=== PATIENT | male | born 1950 | race Caucasian/White ===

== ENCOUNTER 2023-11-22 05:57 | Day surgery (SDC) | payer MEDICARE, OTHER, SELFPAY ==
[2023-11-22] VITALS (14 sets, daily range): BP systolic 115–141; BP diastolic 64–89; BMI 37.7
[2023-11-22] MEDS: NSS 1000 IV ×2 (08:18)
--- NOTE | 2023-11-22 08:19 | ITS.CL.CATH ---
[employer] [facility] - Catheterization
Cardiac Catheterization
Procedure Report:
LEFT HEART CATHETERIZATION
Date of Procedure: November 22, 2023
Procedures performed:
1: Coronary angiography
2: Left ventriculography
Primary Care Physician: Dr. Sharron May
Primary Decatizer: Myself
INDICATION: The patient is a 73-year-old male with a past medical history significant for coronary artery disease status post LAD stenting in 2019 in the setting of aborted cardiac arrest who presents with atypical angina and an abnormal nuclear
perfusion stress test.
ACCESS: The patient was prepped and draped in usual sterile fashion. A 6 English sheath was placed in the right radial artery using the Seldinger over the wire technique.
HEMODYNAMIC FINDINGS (mmHg):
LV(s/d,EDP): 123/8, 18
Ao(s/d,m): 123/75, 98
ANGIOGRAPHIC FINDINGS:
Single-plane Left Ventriculography in [facility] Projection: Normal LV systolic function with no clear regional wall motion abnormalities. No significant mitral irritation. Visualized ejection fraction 60%.
Coronary Angiography:
Dominance: Right
Left Main: Large-caliber, widely patent.
Left Anterior Descending: The left anterior descending artery is a large-caliber vessel that gives rise to a very large first diagonal branch. The previously placed mid LAD stent is widely patent with no significant in-stent restenosis. The
remainder of the vessel has moderate nonobstructive luminal irregularities with normal flow. The diagonal branch has moderate diffuse proximal disease that appears unchanged from prior angiography in 2019. The large medial branch has a smooth 50%
proximal stenosis in the smaller lateral branch has a proximal 60 to 70% stenosis with normal distal flow.
Left Circumflex: The left circumflex is a large-caliber nondominant vessel gives rise to a high first obtuse marginal branch that courses in a ramus distribution with mild nonobstructive disease. The left circumflex terminates in a very large
caliber distal obtuse marginal branch that is widely patent with nonobstructive moderate luminal irregularities.
Right Coronary: The right coronary artery is a large-caliber vessel that has tandem 60% mid stenoses followed by a smooth distal 50% stenosis. The vessel is ectatic and diffusely diseased throughout but appears unchanged compared to prior
angiography in 2020. The distal medium caliber PDA and smaller PLV branch system is patent.
Fluoroscopy Time (min): 2.0
Radiation Dose (mGy): 47
DAP (Gy.cm2): 35
Closure device: None. A TR band was applied for hemostasis at the right wrist.
Complications: None.
ASSESSMENT:
1: Widely patent previously placed LAD stent with unchanged coronary anatomy as compared to 2020.
2: Preserved LV systolic function with no significant mitral regurgitation.
CONCLUSIONS and RECOMMENDATIONS:
1: Continue medical therapy with clinical follow-up as planned.
Jaja Earl M.D.
Copy to: Dr. Sharron May
== END 2023-11-22 11:00 | disposition home or self-care (01) ==
LOC: CATH 05:57
PROVIDERS: ATTENDING PHYSICIAN Internal Medicine Interventional Cardiology; FAMILY PHYSICIAN Family Medicine
DX: I25.119 Atherosclerotic heart disease of native coronary artery with unspecified angina pectoris (principal); Z95.5 Presence of coronary angioplasty implant and graft; E78.5 Hyperlipidemia, unspecified; E03.9 Hypothyroidism, unspecified; G47.33 Obstructive sleep apnea (adult) (pediatric); R73.01 Impaired fasting glucose; Z87.891 Personal history of nicotine dependence; Z79.82 Long term (current) use of aspirin
CPT/HCPCS: 93458; C1894; Q9967